=== PATIENT | female | born 2000 ===

== ENCOUNTER 2023-01-29 15:44 | Outpatient (CLI) | payer OTHER | END 2023-01-29 16:39 | disposition home or self-care (01) | LOC: PRENATAL 15:44 | PROVIDERS: ATTEND Obstetrics & Gynecology Maternal & Fetal Medicine | DX: O35.3XX0 Maternal care for (suspected) damage to fetus from viral disease in mother, not applicable or unspecified (principal); O45.90 Premature separation of placenta, unspecified, unspecified trimester; Z14.8 Genetic carrier of other disease; O44.00 Complete placenta previa NOS or without hemorrhage, unspecified trimester; Z3A.20 20 weeks gestation of pregnancy ==

== ENCOUNTER 2023-04-16 10:19 | Outpatient (CLI) | payer OTHER | END 2023-04-16 10:20 | disposition home or self-care (01) | LOC: PRENATAL 10:19 | PROVIDERS: ATTEND Obstetrics & Gynecology Maternal & Fetal Medicine | DX: O26.849 Uterine size-date discrepancy, unspecified trimester (principal); O36.8199 Decreased fetal movements, unspecified trimester, other fetus; Z14.8 Genetic carrier of other disease; Z3A.31 31 weeks gestation of pregnancy ==